=== PATIENT | female | born 1990 | race Two or more races ===

== ENCOUNTER → 2024-11-17 | Day surgery (SDC) | payer OTHER ==
[~2024-11-17] MED LIST: FAMOTIDINE20 MG PO; LIDOCAINE HCL 2% LOCAL INJ 5 ML SDV VIAL INJ ONE; METOCLOPRAMIDE HCL 10 MG/2ML VIAL ONE; MIDAZOLAM HCL 2 MG/2 ML VIAL ONE; PROPOFOL IV EMULSION 10 MG/ML 20 ML VIAL ONE; PROTONIX20 MG PO; TRULICITY1.5 MG/0.5
[2024-11-17] MEDS: LACTATED RINGER'S 1,000 ML ONE (11:39)
[2024-11-17 12:30] VITALS: TEMP 97.9
[2024-11-17 13:00] VITALS: BP 119/80; PULSE 61; RESP 16; O2SAT 97
== END | disposition home or self-care (01) ==
LOC: ENDO 11:00
PROVIDERS: ATTEND Internal Medicine Gastroenterology
DX: K20.90 Esophagitis, unspecified without bleeding (principal); K29.50 Unspecified chronic gastritis without bleeding; B96.81 Helicobacter pylori [H. pylori] as the cause of diseases classified elsewhere; K44.9 Diaphragmatic hernia without obstruction or gangrene; E11.9 Type 2 diabetes mellitus without complications; E78.5 Hyperlipidemia, unspecified; J32.9 Chronic sinusitis, unspecified; I49.9 Cardiac arrhythmia, unspecified; Z88.8 Allergy status to other drugs, medicaments and biological substances; Z01.810 Encounter for preprocedural cardiovascular examination; Z79.85 Long-term (current) use of injectable non-insulin antidiabetic drugs
CPT/HCPCS: 36415; 43239; 43450; 82948; 93005; J2003; J2250; J2470; J2704; J2765; J7121